=== PATIENT | male | born 1995 | race Caucasian/White ===

== ENCOUNTER 2017-09-03 22:57 | Emergency (ER) | payer BC, OTHER | END 2017-09-03 23:20 | disposition home or self-care (01) | LOC: SCSER 22:57 | DX: J06.9 Acute upper respiratory infection, unspecified (principal); F90.9 Attention-deficit hyperactivity disorder, unspecified type | CPT/HCPCS: 99283 ==

== ENCOUNTER 2019-01-04 21:47 | Emergency (ER) | payer BC, SELFPAY ==
[2019-01-04] MEDS ORDERED: Ketorolac Tromethamine 60 MG/2 ML VIAL ONE (22:35)
== END 2019-01-04 23:18 | disposition home or self-care (01) ==
LOC: ERS 21:47
DX: S39.012A Strain of muscle, fascia and tendon of lower back, initial encounter (principal); F90.9 Attention-deficit hyperactivity disorder, unspecified type; F17.210 Nicotine dependence, cigarettes, uncomplicated; X50.0XXA Overexertion from strenuous movement or load, initial encounter
CPT/HCPCS: 96372; 99283; J1885